=== PATIENT | male | born 1995 | race Caucasian/White ===

== ENCOUNTER 2019-07-24 12:05 | Emergency (ER) | payer MEDICAID ==
[~2019-07-24] VITALS: Ht 162.6 cm; Wt 70.8 kg
[2019-07-24 12:29] VITALS: BP_SYST 131
--- NOTE | 2019-07-24 12:36 | NUR ---
PATIENT TO WAITING ROOM, STABLE; UNCHANGED
--- NOTE | 2019-07-24 12:45 | NUR ---
PATIENT TO ER #6
--- NOTE | 2019-07-24 12:50 | NUR ---
Patient presents to ER C/O finger abcess Patient A&Ox4, ambulatory to ER, afebrile, skin pink and warm, left insex finger swelling & redness, left top of hand redness, denies N/V/D, pain 10/28. Patient states he had a pimple on left index finger, self drained with sterilized needle at home yesterday, swelling, redness, pain continued to day.
--- NOTE | 2019-07-24 12:51 | NUR ---
ER Dr. Ugarte at bedside examining patient.
[2019-07-24 13:27] VITALS: BP_SYST 130
--- NOTE | 2019-07-24 13:32 | NUR ---
Patient given written and verbal discharge instructions and verbalizes understanding. ER MD discussed with patient the results and treatment provided. Patient in stable condition. ID arm band removed. Rx of KEFLEX/BACTRIM given. Patient educated on pain management and to follow up with PMD. Pain Scale . Opportunity for questions provided and answered. Medication side effect fact sheet provided.
== END 2019-07-24 13:27 | disposition home or self-care (01) ==
LOC: SED 12:05
DX: L03.012 Cellulitis of left finger (principal); F17.200 Nicotine dependence, unspecified, uncomplicated; F12.90 Cannabis use, unspecified, uncomplicated; Z71.6 Tobacco abuse counseling
CPT/HCPCS: 99283

== ENCOUNTER 2020-10-19 17:19 | Emergency (ER) | payer MEDICAID ==
[~2020-10-19] VITALS: Ht 165.1 cm; Wt 68.0 kg
[2020-10-19 17:25] VITALS: BP_SYST 126
[2020-10-19] MEDS ORDERED: IBUP-1969 PO (18:34)
[2020-10-19 19:00] VITALS: BP_SYST 126
== END 2020-10-19 19:00 | disposition home or self-care (01) ==
LOC: SED 17:19
DX: S16.1XXA Strain of muscle, fascia and tendon at neck level, initial encounter (principal); S09.90XA Unspecified injury of head, initial encounter; M25.512 Pain in left shoulder; V49.49XA Driver injured in collision with other motor vehicles in traffic accident, initial encounter; Y93.89 Activity, other specified; Y92.89 Other specified places as the place of occurrence of the external cause; Y99.8 Other external cause status
CPT/HCPCS: 70450-TC; 72125-TC; 76376; 99285

== ENCOUNTER 2022-11-23 13:54 | Emergency (ER) | payer MEDICAID ==
[~2022-11-23] VITALS: Ht 162.6 cm; Wt 68.0 kg
[~2022-11-23 13:54] MED LIST: IBUP-1969 PO
[2022-11-23 14:06] VITALS: BP_SYST 122; PULSE 81; RESP 18; TEMP 98; O2SAT 100
[2022-11-23] MEDS ORDERED: NAPR-688 PO (14:31)
[2022-11-23 14:40] VITALS: BP_SYST 119; PULSE 79; RESP 18; TEMP 98; O2SAT 100
== END 2022-11-23 14:45 | disposition home or self-care (01) ==
LOC: SED 13:54
DX: S93.602A Unspecified sprain of left foot, initial encounter (principal); Z79.899 Other long term (current) drug therapy; V00.131A Fall from skateboard, initial encounter; Y93.51 Activity, roller skating (inline) and skateboarding; Y92.89 Other specified places as the place of occurrence of the external cause; Y99.8 Other external cause status
CPT/HCPCS: 99283